=== PATIENT | female | born 1980 | race Caucasian/White ===

== ENCOUNTER 2017-02-15 19:49 | Emergency (ER) | payer OTHER ==
[~2017-02-15] VITALS: Ht 167.6 cm; Wt 129.8 kg
[2017-02-15 19:51] VITALS: BP 117/77
--- NOTE | 2017-02-15 20:29 | NUR ---
PATIENT LEFT WITHOUT BEING SEEN BY DR. KHOURY. NO FURTHER CARE PROVIDED FOR PATIENT.
== END 2017-02-15 20:29 | disposition left against medical advice (07) ==
LOC: MED 19:49
DX: R07.89 Other chest pain (principal); Z53.21 Procedure and treatment not carried out due to patient leaving prior to being seen by health care provider
CPT/HCPCS: 93005; 99281

== ENCOUNTER 2020-11-06 04:17 | Emergency (ER) | payer OTHER ==
[~2020-11-06] VITALS: Ht 170.2 cm; Wt 136.1 kg
[2020-11-06 04:27] VITALS: BP 142/82
--- NOTE | 2020-11-06 04:30 | NUR ---
TO LOBBY A/W BED AMBULATORY
--- NOTE | 2020-11-06 05:00 | NUR ---
SEEN AND EXAMINED BY BARRY WITH ORDERS AND CARRIED OUT
[2020-11-06 05:05] VITALS: BP 142/82
--- NOTE | 2020-11-06 05:59 | NUR ---
PT TAKEN TO RADIOLOGY
[2020-11-06] MEDS ORDERED: MAGNESIUM CITRATE 300 ML BTL PO ONE (07:25)
--- NOTE | 2020-11-06 07:30 | NUR ---
PATIENT REFUSED MEDICATION, ERMD NOTED
[2020-11-06] MEDS ORDERED: ONDANSETRON 4 MG/2 ML VIAL IVP ONE (07:45)
[2020-11-06] MEDS ORDERED: NACL 0.9% 1,000 ML IV ONE (07:45)
[2020-11-06] MEDS ORDERED: MORPHINE SULFATE 2 MG/ML SYR IVP ONE (07:45)
--- NOTE | 2020-11-06 09:00 | NUR ---
PATIENT ELOPED FROM FACILITY. DISCHARGE INSTRUCTIONS NOT GIVEN TO PATIENT. DR. DICK NOTIFIED.
== END 2020-11-06 09:00 | disposition left against medical advice (07) ==
LOC: MED 04:17
DX: K59.00 Constipation, unspecified (principal); K60.2 Anal fissure, unspecified; E11.9 Type 2 diabetes mellitus without complications; Z91.040 Latex allergy status
CPT/HCPCS: 74018; 81002; 81025; 99284